=== PATIENT | male | born 1975 | race Caucasian/White ===

== ENCOUNTER → 2024-06-21 06:14 | Day surgery (SDC) | payer BC, SELFPAY | LOC: GI 06:14 | PROVIDERS: ATTENDING PHYSICIAN Surgery | DX: Z12.11 Encounter for screening for malignant neoplasm of colon (principal); D12.7 Benign neoplasm of rectosigmoid junction; Z86.010 Personal history of colon polyps | CPT/HCPCS: 45380; 88305 ==